=== PATIENT | female | born 1965 | race Caucasian/White ===

== ENCOUNTER 2024-02-12 01:21 | Outpatient (CLI) | payer OTHER | END 2024-02-12 01:22 | disposition critical access hospital (66) | LOC: EMS 01:21 | DX: R41.0 Disorientation, unspecified (principal); R47.81 Slurred speech; R11.10 Vomiting, unspecified; F10.90 Alcohol use, unspecified, uncomplicated; Z78.1 Physical restraint status | CPT/HCPCS: A0425; A0429 ==

== ENCOUNTER 2024-02-12 01:55 | Emergency (ER) | payer OTHER ==
--- NOTE | 2024-02-12 02:06 | ED Physician Documentation ---
PD HPI ALTERED MENTAL STATUS - Stated complaint Stated Complaint: ETOH - History obtained from History obtained from: Patient, EMS - History of Present Illness Timing - onset: How many hours ago (The patient and her were drinking alcohol. They are here on vacation for the last couple of days. The patient apparently was less responsive and had episode of vomiting forcefully. This concerned her who called EMS. Medics report he seemed intoxicated as well.), Today Timing - details: Now resolved (En route she is conversant and awake with normal respirations. She does have some distractible thoughts easily and is focused on the blood pressure cuff and her IV as being annoying. Otherwise denies headache, chest pain, abdomen pain.) Quality / character: Unresponsive (per , with Medics noting the patient sleepy but rousable on their arrival.), Agitated Associated symptoms: No: Fever, Headache, Dyspnea, Cough Contributing factors: Other (she did a "gut cleanse" ferw weeks ago but has had normal diet recently.). No: Recent med change, Recent illness PD PAST MEDICAL HISTORY - Allergies Allergies/Adverse Reactions: Allergies Allergy/AdvReac Type Severity Reaction Status Date / Time No Known Drug Allergies Allergy Verified 02/12/24 02:11 PD ED PE NORMAL - Vitals Vital signs reviewed: Yes - General General: Alert and oriented X 3, No acute distress, Well developed/nourished - HEENT HEENT: Atraumatic, PERRL, EOMI, Pharynx benign - Neck Neck: Supple, no meningeal sign, No adenopathy - Cardiac Cardiac: RRR, No murmur - Respiratory Respiratory: No respiratory distress, Clear bilaterally - Abdomen Abdomen: Normal bowel sounds, Soft, Non distended, No organomegaly, Other (minimally tender epigastric/LUQ without guarding) - Derm Derm: Normal color, Warm and dry - Extremities Extremities: Normal ROM s pain, No edema, No calf tenderness / cord - Neuro Neuro: Alert and oriented X 3, fiberglass bonding machine tender 2-12 intact, No motor deficit, No sensory deficit, Normal speech Eye Opening: Spontaneous Motor: Obeys Commands Verbal: Confused (she is visiting [facility] so did not know exact lcoation, but knew ER.) GCS Score: 14 - Psych Psych: Other (mildly anxious about the cause of passing out. Distracted frequently during history taking by the BP cuff and the IV in her arm when she bends it. ) Results - Vitals Vitals: Vital Signs - 24 hr 02/12/24 02/12/24 02:00 02:32 Temperature 36.8 C Heart Rate 93 90 Respiratory 16 16 Rate Blood Pressure 156/94 H 141/96 H O2 Saturation 98 96 Oxygen O2 Source Room air - Labs Labs: Laboratory Tests 02/12/24 02/12/24 02/12/24 02:08 02:08 02:49 WBC 4.4 L RBC 3.73 L Hgb 12.6 Hct 37.1 MCV 99.5 H MCH 33.8 H MCHC 34.0 RDW 12.1 Plt Count 219 MPV 10.5 Neut # (Auto) 3.2 Lymph # (Auto) 0.9 L [place] # (Auto) 0.2 Eos # (Auto) 0.1 Baso # (Auto) 0.0 Absolute Nucleated RBC 0.00 Nucleated RBC % 0.0 Sodium 142 Potassium 3.8 Chloride 107 Carbon Dioxide 26 Anion Gap 9.0 BUN 16 Creatinine 0.7 Estimated GFR (MDRD) 86 L Glucose 109 H Calcium 9.2 Magnesium 2.1 Total Bilirubin 0.4 AST 29 ALT 30 Alkaline Phosphatase 43 Total Protein 6.8 Albumin 4.5 Globulin 2.3 Albumin/Globulin Ratio 2.0 Lipase 22 Urine Color YELLOW Urine Clarity CLEAR Urine pH 5.5 Ur Specific [place] 1.010 Urine Protein NEGATIVE Urine Glucose (UA) NEGATIVE Urine Ketones NEGATIVE Urine Occult Blood NEGATIVE Urine Nitrite NEGATIVE Urine Bilirubin NEGATIVE Urine Urobilinogen 0.2 (NORMAL) Ur Leukocyte Esterase NEGATIVE Ur Microscopic Review NOT INDICATED Urine Culture Comments NOT INDICATED Urine Opiates Screen NEGATIVE Ur Buprenorphine Scrn NEGATIVE Ur Oxycodone Screen NEGATIVE Urine Methadone Screen NEGATIVE Ur Barbiturates Screen NEGATIVE Ur Tricyclics Screen NEGATIVE Ur Phencyclidine Scrn NEGATIVE Ur Amphetamine Screen NEGATIVE U Methamphetamines Scrn NEGATIVE U Benzodiazepines Scrn NEGATIVE Urine Cocaine Screen NEGATIVE U Cannabinoids Screen NEGATIVE Ur Drug Screen Comment CUTOFF CONC BELOW: Ethyl Alcohol 223.1 PD Medical Decision Making - ED course Complexity details: considered differential, d/w patient ED course: The patient had gone out to dinner and had some drinks and then her and she were back at their house and had some more wine. The noted the patient to be calm much more altered in mentation and seem to be passed out after vomiting a couple of times. He was unclear on how much her breathing was. He called 911 and was directed to possibly do CPR if he felt she was not breathing at all. EMS arrived and noted she was breathing and was actually stirring and responsive to stimulus. The patient's stated the drain to this moderate degree occasionally and have not had this kind of response before. The patient was feeling well otherwise the last day or 2 without any cold or flu vomiting diarrhea or other acute illness. On arrival here the patient denies any headache, chest pain, belly pain. She is feeling present and oriented. We did look for other causes of syncope or altered mentation to include CBC, chemistry panel, heart monitor and vital signs. No obvious other cause was noted. The patient's heart rate and rhythm are normal. Blood pressure is in the normal range. She remains alert and conversant. Her subsequently arrives and is asking about what I feel is the cause for her episode. I told him not clear but no signs of more serious concerns at this time. There could have been a fainting spell associated with the alcohol ingestion or some other cause but again at this point no other significant causes noted on basic testing. They were both more inquisitive about the episode and wanting clear explanation which I was not able to offer but reiterated I did not see anything more serious. The patient patient's seems to be ambulating appropriately. I asked if he felt safe with driving and he said he did feel safe. He does not appear overtly ataxic or intoxicated. The patient herself also walked to the bathroom and back without any ataxia. Departure - Departure Disposition: 01 Home, Self Care Clinical Impression: Syncope Altered mental status Qualifiers: Altered mental status type: delirium Qualified Code(s): R41.0 - Disorientation, unspecified Elevated blood alcohol level Qualifiers: Blood alcohol level: 200-239 mg/100 ml Qualified Code(s): Y90.7 - Blood alcohol level of 200-239 mg/100 ml Condition: Stable Record reviewed to determine appropriate education?: Yes Instructions: ED Fainting Unkn Cause Comments: I do not have a clear explanation for the level of unresponsiveness that you had. On your testing, there is an elevated blood alcohol level of 223 which is well above the legal blood alcohol level for driving but does not necessarily mean it accounts for all your symptoms. Other testing we did including a chemistry panel for blood sugar and electrolytes and kidney function as well as a blood count with regard to anemia and urine tox screen which really just looks for the more substantial substances, were all normal and negative. There certainly could have been some other factors that led to vomiting and fainting/unresponsive. At this point there is no clear more serious cause going on and you seem safe for discharge. Stay well-hydrated. Minimal alcohol for the next day or 2 so as to allow clear assessment if any other symptoms or problems are developing. Follow-up with your primary care if any recurring episodes of lightheadedness or fainting etc.
[2024-02-12] MEDS: SODIUM CHLORIDE 0.9% 1,000 ML IV STA (02:14)
[2024-02-12 02:18] LABS: BASOPHILS % (AUTO) 0.7 %; EOSINOPHILS # (AUTO) 0.1 10^3/uL (0.0-0.7); EOSINOPHILS % (AUTO) 1.6 %; HCT - HEMATOCRIT 37.1 % (37.0-47.0); HGB - HEMOGLOBIN 12.6 g/dL (12.0-16.0); LYMPHOCYTES # (AUTO) 0.9 10^3/uL (1.5-3.5); LYMPHOCYTES % (AUTO) 20.9 %; MEAN CORPUSCULAR HEMOGLOBIN 33.8 pg (27.0-31.0); MEAN CORPUSCULAR VOLUME 99.5 fL (81.0-99.0); MEAN PLATELET VOLUME 10.5 fL (7.9-10.8); MONOCYTES # (AUTO) 0.2 10^3/uL (0.0-1.0); MONOCYTES % (AUTO) 4.7 %; NEUTROPHILS # (AUTO) 3.2 10^3/uL (1.5-6.6); NEUTROPHILS % (AUTO) 71.9 %; PLT - PLATELET COUNT 219 10^3/uL (130-450); RED BLOOD COUNT 3.73 10^6/uL (4.20-5.40); RED CELL DISTRIBUTION WIDTH 12.1 % (12.0-15.0); WHITE BLOOD COUNT 4.4 x10^3/uL (4.8-10.8)
[2024-02-12 02:26] LABS: MAGNESIUM 2.1 mg/dL (1.7-2.3)
[2024-02-12 02:32] LABS: ALBUMIN 4.5 g/dL (3.2-5.5); BILIRUBIN,TOTAL 0.4 mg/dL (0.2-1.0); CALCIUM 9.2 mg/dL (8.5-10.3); CREATININE 0.7 mg/dL (0.6-1.3); ETOH - ETHANOL 223.1 mg/dL; POTASSIUM 3.8 mmol/L (3.5-4.5); TOTAL PROTEIN 6.8 g/dL (6.4-8.9)
[2024-02-12 03:06] LABS: BILIRUBIN,URINE NEGATIVE (NEGATIVE); GLUCOSE, URINE (UA) NEGATIVE (NEGATIVE); KETONES,URINE (UA) NEGATIVE (NEGATIVE); LEUKOCYTE ESTERASE, URINE NEGATIVE (NEGATIVE); NITRITE,URINE NEGATIVE (NEGATIVE); OCCULT BLOOD,URINE NEGATIVE (NEGATIVE); PH,URINE 5.5 PH (5.0-7.5); PROTEIN,URINE NEGATIVE (NEGATIVE); UROBILINOGEN,URINE 0.2 (NORMAL) E.U./dL (NORMAL)
[2024-02-12 03:07] LABS: CLARITY,URINE CLEAR (CLEAR)
[2024-02-12 03:17] LABS: AMPHETAMINE SCREEN,URINE NEGATIVE (NEGATIVE); BARBITURATE SCREEN,UR NEGATIVE (NEGATIVE); BENZODIAZEPINES SCREEN, URINE NEGATIVE (NEGATIVE); BUPRENORPHINE SCREEN, URINE NEGATIVE (NEGATIVE); COCAINE SCREEN URINE NEGATIVE (NEGATIVE); METHADONE SCREEN, URINE NEGATIVE (NEGATIVE); METHAMPHETAMINES SCREEN, URINE NEGATIVE (NEGATIVE); OPIATE SCREEN, URINE NEGATIVE (NEGATIVE); OXYCODONE SCREEN, URINE NEGATIVE (NEGATIVE); THC CANNABINOID SCREEN, URINE NEGATIVE (NEGATIVE); TRICYCLIC ANTIDEPRESSANT,URINE NEGATIVE (NEGATIVE)
[2024-02-12 03:48] VITALS: BP 139/86; O2SAT 98
== END 2024-02-12 03:42 | disposition home or self-care (01) ==
LOC: EDBD → ED 01:55
DX: R55 Syncope and collapse (principal); F10.121 Alcohol abuse with intoxication delirium; Y90.7 Blood alcohol level of 200-239 mg/100 ml
CPT/HCPCS: 36415; 80053; 80306; 81001; 81003; 82077; 83690; 83735; 85025; 87086; 96360; 99284